=== PATIENT | female | born 1960 | race Hispanic/Latino ===

== ENCOUNTER 2017-02-09 13:05 | Emergency (ER) | payer OTHER ==
[2017-02-09 13:05] VITALS: BMI 36.5
[2017-02-09 13:26] VITALS: TEMP 98.4
[2017-02-09 13:35] VITALS: RESP 18
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
[2017-02-09 15:11] VITALS: BP 135/79; PULSE 94; O2SAT 98
--- NOTE | 2017-02-09 15:46 | RAD ---
PROCEDURE: Right Ankle Radiographs. HISTORY: ltwist and pain COMPARISON: None FINDINGS: BONES: No evidence of acute displaced fracture nor dislocation. Talar dome intact. Swelling. Posterior and plantar calcaneal enthesophytes are present JOINTS: Ankle mortise maintained. No significant osteoarthritis. SOFT TISSUES: There appears to be some mild soft tissue swelling overlying the lateral malleolus. OTHER FINDINGS: None. IMPRESSION: No evidence of acute displaced fracture nor dislocation. Mild soft tissue swelling over the lateral malleolus.
--- NOTE | 2017-02-09 16:50 | RAD ---
PROCEDURE: Right Knee Radiographs. HISTORY: twist and pain COMPARISON: None. FINDINGS: BONES: Normal. No fracture. JOINTS: Joint spaces relatively preserved. Small anterior superior patella enthesophyte. . JOINT EFFUSION: There appears to be a trace joint effusion. OTHER FINDINGS: None. IMPRESSION: No evidence of acute displaced fracture nor dislocation. Minor DJD. Suspect trace joint effusion.
--- NOTE | 2017-02-09 16:51 | RAD ---
PROCEDURE: Right Foot Radiographs. HISTORY: twist and pain COMPARISON: None. FINDINGS: BONES: No evidence of acute displaced fracture or dislocation. Plantar and posterior calcaneal enthesophytes are JOINTS: Normal. SOFT TISSUES: Present the questionable mild distal dorsal soft tissue swelling. . OTHER FINDINGS: None. IMPRESSION: . No evidence of acute displaced fracture nor dislocation. If symptoms persist or occult fracture suspected clinically recommend repeat radiographs in 5-10 days as most fractures should become radiographically evident in this timeframe.
== END 2017-02-09 15:19 | disposition home or self-care (01) ==
LOC: ED 13:05
DX: S89.91XA Unspecified injury of right lower leg, initial encounter (principal); S99.911A Unspecified injury of right ankle, initial encounter; S99.921A Unspecified injury of right foot, initial encounter; X50.1XXA Overexertion from prolonged static or awkward postures, initial encounter; Y92.480 Sidewalk as the place of occurrence of the external cause; I10 Essential (primary) hypertension; M77.31 Calcaneal spur, right foot; M25.50 Pain in unspecified joint
CPT/HCPCS: 29530; 73562; 73610; 73630; 96372; 99282; J1885

== ENCOUNTER 2018-10-24 14:21 | Emergency (ER) | payer OTHER ==
[2018-10-24 14:28] VITALS: RESP 18; TEMP 98; O2SAT 98; BMI 35.2
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
[2018-10-24 17:57] VITALS: BP 142/81; PULSE 84
--- NOTE | 2018-10-25 08:39 | RAD ---
Date of service: 10/24/2018 PROCEDURE: Bilateral Knee Radiographs. HISTORY: fall COMPARISON: MRI right knee dated 07/10/2017; right knee radiographs dated 02/09/2017; no prior imaging of the left knee TECHNIQUE: 4 views obtained. FINDINGS: BONES: Right Knee: No acute fracture. Left Knee: No acute fracture. JOINTS: Right Knee: Mild tricompartmental narrowing without significant degenerative spurring. Left knee: Mild tricompartmental narrowing without significant degenerative spurring. SOFT TISSUES: Right Knee: Quadriceps tendon insertional enthesophyte. Left Knee: Quadriceps tendon insertional enthesophyte. JOINT EFFUSION: Right Knee: None. Left Knee: None. OTHER FINDINGS: None. IMPRESSION: No demonstrated fracture or dislocation. Mild tricompartmental narrowing without significant degenerative spurring.
== END 2018-10-24 18:40 | disposition home or self-care (01) ==
LOC: ED 14:21
DX: M25.561 Pain in right knee (principal); M25.562 Pain in left knee; W01.0XXA Fall on same level from slipping, tripping and stumbling without subsequent striking against object, initial encounter; I10 Essential (primary) hypertension; F17.210 Nicotine dependence, cigarettes, uncomplicated
CPT/HCPCS: 73562; 96372; 99283; J1885